=== PATIENT | male | born 1965 | race Caucasian/White ===

== ENCOUNTER 2017-11-22 11:02 | Emergency (ER) | payer OTHER ==
[2017-11-22 11:05] VITALS: BP 141/92; PULSE 100; RESP 22; TEMP 97.4; O2SAT 94
[2017-11-22 11:20] VITALS: BP 144/77; PULSE 100; RESP 18; O2SAT 96
[2017-11-22] MEDS ORDERED: SIMV40TA PO (11:29)
[2017-11-22] MEDS ORDERED: FOSI40TA PO (11:29)
[2017-11-22] MEDS ORDERED: ALBU0.08 NEB (11:29)
[2017-11-22] MEDS ORDERED: FLUT100A INH (11:29)
[2017-11-22] MEDS ORDERED: HYDR25TA5 PO (11:29)
[2017-11-22] MEDS ORDERED: SODIUM CHLORIDE 0.9% FLUSH 10 ML FLUSH IVF PRN ×2 (11:30→14:00)
[2017-11-22] MEDS ORDERED: methylPREDNISolone SOD SUCC 125 MG/2 ML VIAL IV PUSH ONE (11:30)
[2017-11-22 11:32] VITALS: RESP 18; O2SAT 99
[2017-11-22] MEDS: RESP: ALBUTEROL 2.5 MG/IPRATROPIUM 0.5 MG NEB (SCH) INH (11:44)
--- NOTE | 2017-11-22 11:56 | RADRPT ---
EXAM DATE/TIME: 11/22/2017 11:39 [facility] COMPARISON: No previous studies available for comparison. INDICATIONS : Short of breath, progressively getting worse. Patient is having a difficult time ca tching his breath. MEDICAL HISTORY : None. SURGICAL HISTORY : None. ENCOUNTER: Initial ACUITY: 3 days PAIN SCORE: 0/10 LOCATION: Bilateral chest FINDINGS: Minimal airspace disease in the lingula. Otherwise, no significant focal pleural or parenchymal opaci ties. The cardiomediastinal contours are unremarkable. Osseous structures are intact. CONCLUSION: 1. Minimal lingular airspace disease likely reflecting atelectasis/scarring. New Alonso MD on November 22, 2017 at 11:53 Board Certified Radiologist. This report was verified electronically.
[2017-11-22 12:28] LABS: BASOPHIL # 0.1 TH/MM3 (0-0.2); BASOPHIL % 0.4 % (0.0-2.0); EOSINOPHIL # 0.6 TH/MM3 (0-0.4); EOSINOPHIL % 3.7 % (0.0-4.0); HEMATOCRIT 43.3 % (39.0-51.0); HEMOGLOBIN 15.3 GM/DL (13.0-17.0); LYMPH % 16.6 % (9.0-44.0); LYMPHOCYTE # 2.9 TH/MM3 (1.0-4.8); MEAN CELL VOLUME 88.2 FL (80.0-100.0); MEAN CORPUSCULAR HEMOGLOBIN 31.1 PG (27.0-34.0); MEAN CORPUSCULAR HGB CONC 35.3 % (32.0-36.0); MEAN PLATELET VOLUME 8.2 FL (7.0-11.0); MONO % 9.6 % (0.0-8.0); MONOCYTE # 1.6 TH/MM3 (0-0.9); NEUT % 69.7 % (16.0-70.0); PLATELET COUNT 255 TH/MM3 (150-450); RED BLOOD COUNT 4.91 MIL/MM3 (4.50-5.90); RED CELL DISTRIBUTION WIDTH 14.6 % (11.6-17.2); WHITE BLOOD COUNT 17.2 TH/MM3 (4.0-11.0)
[2017-11-22 12:34] LABS: ALBUMIN 3.8 GM/DL (3.4-5.0); AST (GOT) 18 U/L (15-37); BICARBONATE 27.4 MEQ/L (21.0-32.0); BLOOD UREA NITROGEN 19 MG/DL (7-18); CALCIUM 9.5 MG/DL (8.5-10.1); CHLORIDE 105 MEQ/L (98-107); CREATININE 0.97 MG/DL (0.60-1.30); GLOMERULAR FILTRATION RATE 81 ML/MIN (>89); GLUCOSE,RANDOM 102 MG/DL (74-106); SODIUM (NA) 143 MEQ/L (136-145)
[2017-11-22 12:39] LABS: ALKALINE PHOSPHATASE 67 U/L (45-117); ALT (GPT) 31 U/L (12-78); TOTAL BILIRUBIN ADULT 0.3 MG/DL (0.2-1.0); TOTAL PROTEIN 7.1 GM/DL (6.4-8.2); TROPONIN I LESS THAN 0.02 NG/ML (0.02-0.05)
[2017-11-22 13:07] VITALS: BP 144/75; PULSE 87; RESP 18; O2SAT 97
[2017-11-22] MEDS ORDERED: RESP: ALBUTEROL 2.5 MG/3 ML NEB (SCH) NEB ONE (13:30)
[2017-11-22] MEDS: MAGNESIUM SULFATE 1 GM PREMIX 100 ML IV SCH ×2 (13:42→14:30)
[2017-11-22] MEDS ORDERED: IOHEXOL 350 MG/ML 10 ML VIAL (for RAD DIAG) IVCONTRAST ONE (14:36)
[2017-11-22 14:59] VITALS: BP 142/83; PULSE 89; RESP 18; O2SAT 94
--- NOTE | 2017-11-22 15:22 | RADRPT ---
EXAM DATE/TIME: 11/22/2017 14:31 [facility] COMPARISON: No previous studies available for comparison. INDICATIONS : Short of breath. IV CONTRAST: 75 cc Omnipaque 350 (iohexol) IV RADIATION DOSE: 22.84 CTDIvol (mGy) MEDICAL HISTORY : Chronic obstructive pulmonary disease. SURGICAL HISTORY : None. ENCOUNTER: Initial ACUITY: 1 day PAIN SCALE: 0/10 LOCATION: chest TECHNIQUE: Volumetric scanning of the chest was performed using a pulmonary embolism protocol MIP images were re constructed. Using automated exposure control and adjustment of the mA and/or kV according to patien t size, radiation dose was kept as low as reasonably achievable to obtain optimal diagnostic quality images. DICOM format image data is available electronically for review and comparison. Follow-up recommendations for detected pulmonary nodules are based at a minimum on nodule size and pa tient risk factors according to Fleischner Society Guidelines. FINDINGS: PULMONARY ARTERIES: No evidence for intraluminal filling defect in the pulmonary arteries to the proximal segmental level . More distal segmental and subsegmental branches are inadequately opacified for definitive evaluatio n. LUNGS: Minimal atelectasis versus scarring in the anterior right middle lobe. PLEURAE: There is no pleural thickening or pleural effusion. MEDIASTINUM: Ascending thoracic aorta is slightly aneurysmal measuring up to 4 cm. Proximal thoracic arch is mildl y ectatic measuring up to 3.5 cm. Nonstandard 4 vessel arch anatomy with direct origin of the left ve rtebral artery from the arch. Descending thoracic ureter is normal in caliber. Heart is grossly unrem arkable. No significant pericardial effusion. Slightly prominent right hilar nodes measuring up to 11 mm. MUSCULOSKELETAL: Within normal limits for patient age. MISCELLANEOUS: The visualized upper abdominal organs demonstrate no acute abnormality. CONCLUSION: 1. No CT evidence for pulmonary artery embolism to the proximal segmental level. More distal segmenta l and subsegmental branches are inadequately opacified for definitive evaluation. 2. 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 3. Slight ectasia of the proximal arch measuring up to 3.5 cm. 4. Minimal atelectasis/scarring in the anterior right middle lobe. New Alonso MD on November 22, 2017 at 15:16 Board Certified Radiologist. This report was verified electronically.
--- NOTE | 2017-11-22 16:03 | PD ---
HPI Chief Complaint: Respiratory Symptoms Time Seen by Provider: 11:11 Travel History International Travel<30 days: No Contact w/Intl Traveler<30days: No Traveled to known affect area: No History of Present Illness HPI Patient is a 52-year-old male comes in complaining of shortness of breath. He was told in July that he had developed asthma. He is a smoker and continues to smoke. He denies any chest pain. He denies fever chills. He has been using albuterol at home without relief. He finished a course of steroids 2 weeks ago as well as antibiotics. He is currently traveling and is here from [place]. He was seen by a nurse paralegal before he left, but does not know any results. Severity is mild to moderate. PFSH Past Medical History COPD: Yes (possibly diagnosed) ?: Not Social History Alcohol Use: Yes (on occasion) Tobacco Use: Yes (on occasion) Substance Use: No Allergies-Medications (Allergen,Severity, Reaction): Coded Allergies: No Known Allergies (Unverified , 11/22/17) Reported Meds & Prescriptions Reported Meds & Active Scripts Active Prednisone 50 Mg Tab 50 Mg PO DAILY 4 Days Ventolin Hfa 18 GM Inh (Albuterol Sulfate) 90 Mcg/Act Aer 2 Puff INH Q4-6H PRN Reported Flovent Diskus Inh (Fluticasone Powder Inh) 100 Mcg/Blist Aerp 100 Mcg INH BID Albuterol Neb (Albuterol Sulfate) 2.5 Mg/3 Ml Neb 2.5 Mg NEB Q4HR NEB While awake Hydrochlorothiazide 25 Mg Tab 25 Mg PO DAILY Fosinopril (Fosinopril Sodium) 40 Mg Tab 40 Mg PO DAILY Simvastatin 40 Mg Tab 40 Mg PO HS Review of Systems Except as stated in HPI: all other systems reviewed are Neg General / Constitutional: No: Fever, Chills HENT: No: Headaches, Lightheadedness Cardiovascular: No: Chest Pain or Discomfort Respiratory: Positive: Cough, Shortness of Breath Gastrointestinal: No: Nausea, Vomiting Musculoskeletal: No: Myalgias, Edema Skin: No Rash, No Change in Pigmentation Neurologic: No: Weakness, Dizziness Physical Exam Narrative GENERAL: Awake and alert, no acute distress. SKIN: Focused skin assessment warm/dry. HEAD: Atraumatic. Normocephalic. EYES: Pupils equal and round. No scleral icterus. ENT: Mucous membranes pink and moist. NECK: Trachea midline. No JVD. CARDIOVASCULAR: Regular rate and rhythm. No murmur appreciated. RESPIRATORY: No accessory muscle use. Diffuse wheezing, decreased breath sounds bilaterally. Breath sounds equal bilaterally. GASTROINTESTINAL: Abdomen soft, non-tender, nondistended. MUSCULOSKELETAL: No obvious deformities. No clubbing. No cyanosis. No edema. NEUROLOGICAL: Awake and alert. No obvious cranial nerve deficits. Motor grossly within normal limits. Normal speech. PSYCHIATRIC: Appropriate mood and affect; insight and judgment normal. Data Data Last Documented VS Vital Signs Date Time Temp Pulse Resp B/P (MAP) Pulse Ox O2 Delivery O2 Flow Rate FiO2 11/22/17 14:59 89 18 142/83 (102) 94 Nasal Cannula 2.00 11/22/17 11:05 97.4 Orders Orders Complete Blood Count With Diff (11/22/17 11:25) Comprehensive Metabolic Panel (11/22/17 11:25) Troponin I (11/22/17 11:25) Iv Access Insert/Monitor (11/22/17 11:25) Ecg Monitoring (11/22/17 11:25) Oximetry (11/22/17 11:25) Oxygen Administration (11/22/17 11:25) Chest, Pa & Lat (11/22/17 11:25) Sodium Chloride 0.9% Flush (Ns Flush) (11/22/17 11:30) Methylprednisolone So Succ Inj (Solumedr (11/22/17 11:30) Albuterol-Ipratropium Neb (Duoneb Neb) (11/22/17 11:30) Magnesium Sulfate 1 Gm Premix (Magnesium (11/22/17 13:30) Albuterol Neb (Albuterol Neb) (11/22/17 13:30) Ct Pulmonary Angiogram (11/22/17 13:53) Sodium Chloride 0.9% Flush (Ns Flush) (11/22/17 14:00) Electrocardiogram (11/22/17 11:22) Iohexol 350 Inj (Omnipaque 350 Inj) (11/22/17 14:36) Ed Discharge Order (11/22/17 16:13) Labs Laboratory Tests Test 11/22/17 11:27 11/22/17 11:37 Blood Urea Nitrogen 19 MG/DL Creatinine 0.97 MG/DL Random Glucose 102 MG/DL Total Protein 7.1 GM/DL Albumin 3.8 GM/DL Calcium Level 9.5 MG/DL Alkaline Phosphatase 67 U/L Aspartate Amino Transf (AST/SGOT) 18 U/L Alanine Aminotransferase (ALT/SGPT) 31 U/L Total Bilirubin 0.3 MG/DL Sodium Level 143 MEQ/L Potassium Level 3.9 MEQ/L Chloride Level 105 MEQ/L Carbon Dioxide Level 27.4 MEQ/L Anion Gap 11 MEQ/L Estimat Glomerular Filtration Rate 81 ML/MIN Troponin I LESS THAN 0.02 NG/ML White Blood Count 17.2 TH/MM3 Red Blood Count 4.91 MIL/MM3 Hemoglobin 15.3 GM/DL Hematocrit 43.3 % Mean Corpuscular Volume 88.2 FL Mean Corpuscular Hemoglobin 31.1 PG Mean Corpuscular Hemoglobin Concent 35.3 % Red Cell Distribution Width 14.6 % Platelet Count 255 TH/MM3 Mean Platelet Volume 8.2 FL Neutrophils (%) (Auto) 69.7 % Lymphocytes (%) (Auto) 16.6 % Monocytes (%) (Auto) 9.6 % Eosinophils (%) (Auto) 3.7 % Basophils (%) (Auto) 0.4 % Neutrophils # (Auto) 12.0 TH/MM3 Lymphocytes # (Auto) 2.9 TH/MM3 Monocytes # (Auto) 1.6 TH/MM3 Eosinophils # (Auto) 0.6 TH/MM3 Basophils # (Auto) 0.1 TH/MM3 CBC Comment DIFF FINAL Differential Comment MDM Medical Decision Making Medical Screen Exam Complete: Yes Emergency Medical Condition: Yes Medical Record Reviewed: Yes Interpretation(s) ECG shows normal sinus rhythm at 90, no ST elevation or depression, normal intervals Differential Diagnosis COPD exacerbation versus pneumonia versus bronchitis versus PE Narrative Course Patient is a 52-year-old male who comes in complaining of shortness of breath. Exam shows decreased breath sounds as well as wheezing. IV established, labs sent. Labs do show an elevated white blood cell count. Chest x-ray shows no acute abnormalities. Given 3 DuoNeb's as well as a dose of Solu-Medrol. He does report feeling better, but is still wheezing. Given 2 g of mag and an additional albuterol treatment. Patient is requesting further testing, he does not believe this is caused by a chronic disease or smoking. CTA of the chest performed shows an incidental finding of an aneurysm, patient is informed of these results and advised follow- up with his doctor regarding this. There is no evidence of PE or pneumonia. Patient discharged home with a course of steroids. Advised to quit smoking. Advised to follow-up with his doctor regarding the aneurysm as well as his COPD. Advised to return anytime for any worsening symptoms. Last [address] Angiography 11/22/17 1353 Signed Impressions: Service Date/Time: Wednesday, November 22, 2017 14:31 - CONCLUSION: 1. No CT evidence for pulmonary artery embolism to the proximal segmental level. More distal segmental and subsegmental branches are inadequately opacified for definitive evaluation. 2. 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 3. Slight ectasia of the proximal arch measuring up to 3.5 cm. 4. Minimal atelectasis/scarring in the anterior right middle lobe. New Alonso MD Chest X-Ray 11/22/17 1125 Signed Impressions: Service Date/Time: Wednesday, November 22, 2017 11:39 - CONCLUSION: 1. Minimal lingular airspace disease likely reflecting atelectasis/scarring. New Alonso MD Diagnosis Primary Impression: COPD exacerbation Patient Instructions: COPD (Chronic Obstructive Pulmonary Disease) (ED), General Instructions Additional Instructions: Follow-up with your doctors. Take the prednisone starting tomorrow as you had steroids already today. Use albuterol as needed. Return to the ED as needed for any worsening symptoms. Scripts Prednisone (Prednisone) 50 Mg Tab 50 MG PO DAILY for 4 Days, #4 TAB 0 Refills Prov: Diya Arreguin MD 11/22/17 Albuterol 18 GM Inh (Ventolin Hfa 18 GM Inh) 90 Mcg/Act Aer 2 PUFF INH Q4-6H Y for SHORTNESS OF BREATH, #1 INHALER 0 Refills Prov: Diya Arreguin MD 11/22/17 Disposition: 01 DISCHARGE HOME Condition: Stable Diya Arreguin MD Nov 22, 2017 16:03
[2017-11-22] MEDS ORDERED: PRED50 PO (16:13)
[2017-11-22] MEDS ORDERED: VENTAER INH (16:13)
--- NOTE | 2017-11-23 23:52 | EKG ---
Date Performed: 11/22/2017 Time Performed: 11:22:10 PTAGE: 52 years EKG: Sinus rhythm NORMAL ECG NO PREVIOUS TRACING DOCTOR: Jovon Chavez Interpretating Date/Time 11/23/2017 23:47:51
== END 2017-11-22 19:43 | disposition home or self-care (01) ==
LOC: NEPE 11:02
DX: J44.1 Chronic obstructive pulmonary disease with (acute) exacerbation (principal); Z72.0 Tobacco use
CPT/HCPCS: 71046; 71275; 80053; 84484; 85025; 93005; 94640; 94664; 96361; 96374; 99285; J2930; J3475; J7613; Q9967